=== PATIENT | male | born 1955 | race Caucasian/White ===

== ENCOUNTER → 2017-05-05 | Outpatient (CLI) | payer MEDICAID ==
[~2017-05-05] MED LIST: GADOBUTROL 10 ML VIAL IVP ONE
== END ==
LOC: FIMAGING 10:11
PROVIDERS: ATTEND Psychiatry & Neurology Neurology
DX: R20.0 Anesthesia of skin (principal); G31.9 Degenerative disease of nervous system, unspecified; G93.89 Other specified disorders of brain; R94.02 Abnormal brain scan
CPT/HCPCS: A9585

== ENCOUNTER → 2018-04-11 | Outpatient (CLI) | payer MEDICAID | LOC: CIMAGING 11:00 | PROVIDERS: ATTEND Nurse Practitioner Family | DX: M79.671 Pain in right foot (principal) | CPT/HCPCS: 73630-PO ==